=== PATIENT | male | born 1940 ===

== ENCOUNTER 2018-09-28 12:23 | Outpatient (CLI) | payer OTHER | END 2018-09-28 12:24 | disposition home or self-care (01) | LOC: C.PAT 12:23 | DX: C61 Malignant neoplasm of prostate (principal); R33.9 Retention of urine, unspecified ==

== ENCOUNTER 2018-09-28 13:04 | Outpatient (CLI) | payer OTHER | END 2018-09-28 13:05 | disposition home or self-care (01) | LOC: C.CTH 13:04 ==